=== PATIENT | female | born 1975 | race Caucasian/White ===

== ENCOUNTER 2023-01-09 19:11 | Emergency (ER) | payer SELFPAY ==
[~2023-01-09] VITALS: Ht 157.5 cm; Wt 55.0 kg
[2023-01-09 19:15] VITALS: BP 110/73
[2023-01-09] MEDS ORDERED: METOCLOPRAMIDE HCL 10MG TABLET PO ONE (22:30)
[2023-01-09 23:34] LABS: BASOPHILS % 0.3 % (0.0-2.0); EOSINOPHILS % 0.4 % (0.0-5.0); HEMATOCRIT. 33.7 % (36.0-48.0); HEMOGLOBIN. 11.5 g/dL (12.0-16.0); LYMPHOCYTES % 25.9 % (20.0-50.0); MEAN CORPUSCULAR HEMOGLOBIN 30.3 pg (28.0-32.0); MEAN CORPUSCULAR VOLUME 88.6 fL (81.0-99.0); MEAN PLATELET VOLUME 8.2 fl (7.4-10.4); MONOCYTES % 12.4 % (2.0-8.0); PLATELET 211 x1000/uL (130-400); RED CELL DISTRIBUTION WIDTH 14.2 % (11.6-14.6)
[2023-01-09 23:35] LABS: CLARITY URINE CLOUDY (CLEAR); COLOR URINE YELLOW (YELLOW); KETONES URINE TRACE (NEGATIVE); LEUKOCYTE ESTERASE URINE 3+ (NEGATIVE); NITRITE URINE NEGATIVE (NEGATIVE); OCCULT BLOOD URINE NEGATIVE (NEGATIVE); PROTEIN URINE 1+ (NEGATIVE); SPECIFIC GRAVITY URINE 1.024 (1.005-1.030); UROBILINOGEN URINE 0.2 E.U./dL (0.2-1.0)
[2023-01-09 23:43] LABS: CHLORIDE 104 mEq/L (98-107)
[2023-01-10] MEDS ORDERED: ACET-2708 MT (00:19)
[2023-01-10] MEDS ORDERED: METO-293 MT (00:19)
== END 2023-01-10 01:44 | disposition home or self-care (01) ==
LOC: ER 19:11
DX: G43.909 Migraine, unspecified, not intractable, without status migrainosus (principal)
CPT/HCPCS: 36415; 71045; 80053; 80307; 80329; 81003; 84484; 85025; 99284; J8597